=== PATIENT | female | born 1960 | race African-American/Black ===

== ENCOUNTER 2020-03-28 05:14 | Day surgery (SDC) | payer MEDICARE, MEDICAID ==
--- NOTE | 2020-03-25 16:35 | Opthalmology H&P ---
Ophthalmology H&P H&P Chief Complaint: decreased vision in right eye HPI Vision Affects Ability to: read, manage personal affairs Past Ocular History: retinal problems - Vit. Hemorrhage OU HPI Narrative Blurry vision Exam Visual Acuity: OD 20/125 OS 20/60 Tension: OD 18 OS 20 Eye Exam: normal OU: external exam, palpebral fissure-width, marginal reflex distance, levator function, corneas, anterior chambers; findings: lens - PSC/NS Cataract OD, fundus exam - Vitreous hemorrhage OU Assessment/Plan Treatment Plan: cataract extraction w/ lens implant Goals of Treatment: improvement of vision, enhance quality of life Attestation Attestation The risks and benefits of the surgery as well as alternative procedures were explained to the patient in detail. Ace Peters MD Mar 25, 2020 16:35
--- NOTE | 2020-03-25 16:36 | Pre-Procedure Note/Attestation ---
Pre-Procedure Note/Attestation Complete Prior to Procedure Planned Procedure: right Procedure Narrative: Cataract extraction with IOL implant right eye Indications for Procedure Pre-Operative Diagnosis: Posterior subcapsular/ Nuclear sclerotic cataract right eye Attestation I attest that I discussed the nature of the procedure; its benefits; risks and complications; and alternatives (and the risks and benefits of such alternatives), prior to the procedure, with the patient (or the patient's legal employer relations representative). I attest that, if there was a reasonable possibility of needing a blood transfusion, the patient (or the patient's legal employer relations representative) was given the [facility] standardized written summary, pursuant to the Robbi Cristina Blood Safety Act ([place] Health and Safety Code # 1645, as amended). I attest that I re-evaluated the patient just prior to the surgery and that there has been no change in the patient's H&P, except as documented below: Ace Peters MD Mar 25, 2020 16:36
[~2020-03-28] VITALS: Ht 182.9 cm; Wt 127.0 kg
[2020-03-28] VITALS (9 sets, daily range): BP systolic 117–157; BP diastolic 61–91
[~2020-03-28 05:14] MED LIST: COGENTIN1 MG ORAL; GEODON20 MG ORAL; GLIPIZIDE5 MG ORAL; HUMULIN R100 UNIT/1 SUBQ; IBUPROFEN200 MG ORAL; LATUDA80 MG PO; METFORMIN HCL1000 M1 ORAL; PAROXETINE HC12.5 MG ORAL; SIMVASTATIN20 MG ORAL; TRAZODONE HCL50 MG ORAL
[2020-03-28] MEDS ORDERED: Tobramycin Op Soln 0.3% 5ml RIGHT EYE ONE (06:00)
[2020-03-28] MEDS ORDERED: Akten 3.5% 1ml Btl RIGHT EYE ONE (07:00)
[2020-03-28] MEDS ORDERED: Tobradex Opth Oint 3.5gm RIGHT EYE ONE (07:00)
[2020-03-28] MEDS ORDERED: Proparacaine 0.5% Opth Soln 15ml RIGHT EYE ONE (07:00)
[2020-03-28] MEDS ORDERED: Cyclopentolate 2% Opth Sol RIGHT EYE ONE (07:00)
[2020-03-28] MEDS ORDERED: prednisoLONE acetate 1% Opth Susp 1ml ONE (07:00)
[2020-03-28] MEDS ORDERED: Tetracaine 0.5% Opth 4ml Soln RIGHT EYE ONE (07:00)
[2020-03-28] MEDS ORDERED: Maxitrol Opth Oint 3.5gm ONE (07:00)
[2020-03-28] MEDS ORDERED: Pilocarpine 1% Opth 15ml Soln ONE (07:00)
[2020-03-28] MEDS ORDERED: Diclofenac Sod 0.1% Op Soln RIGHT EYE ONE (07:00)
[2020-03-28] MEDS: Tropicamide 1% Opth 15ml Soln RIGHT EYE SCH ×3 (07:55→08:23)
[2020-03-28] MEDS: Phenylephrine 10% Opth Soln 5ml RIGHT EYE SCH ×3 (07:55→08:23)
[2020-03-28] MEDS ORDERED: LANTUS SOL100 UNIT/1 SUBQ (08:09)
[2020-03-28] MEDS ORDERED: NOVOLOG100 UNITS1 SUBQ (08:10)
[2020-03-28] MEDS ORDERED: LISINOPRIL40 MG ORAL (08:10)
[2020-03-28] MEDS ORDERED: AMLODIPINE BESYL5 MG ORAL (08:11)
[2020-03-28] MEDS ORDERED: PROZAC40 MG ORAL (08:11)
[2020-03-28] MEDS ORDERED: acetaZOLAMIDE 500mg Inj ONE (09:53)
[2020-03-28] MEDS ORDERED: fentaNYL 100 mcg/2 mL IV ONE ×2 (09:55→10:14)
[2020-03-28] MEDS ORDERED: Midazolam 2mg/2ml Inj ONE ×3 (09:55→10:26)
[2020-03-28] MEDS ORDERED: Sterile Water Irrig 1000ml IRRIG ONE (10:00)
[2020-03-28] MEDS ORDERED: LR 1000ml ONE (10:00)
[2020-03-28] MEDS ORDERED: NS Irrig 1000ml ONE (10:00)
--- NOTE | 2020-03-28 10:34 | Anethesia Preoperative Eval ---
Anesthesia Pre-op PMH/ROS General Date of Evaluation: Mar 28, 2020 Time of Evaluation: 09:50 Anesthesiologist: bri ASA Score: ASA 3 Mallampati Score Class I : Soft palate, uvula, fauces, pillars visible Class II: Soft palate, uvula, fauces visible Class III: Soft palate, base of uvula visible Class IV: Only hard plate visible Mallampati Classification: Class III Surgeon: amarjit Diagnosis: cataract Surgical Procedure: Cataract extraction Anesthesia History: none Family History: no anesthesia problems Allergies: Coded Allergies: No Known Allergies (Unverified , 03/25/20) Medications: see eMAR Patient NPO?: Yes NPO Date: Mar 28, 2020 NPO Time: 00:01 Past Medical History Cardiovascular: Reports: HTN, CAD; Denies: OR, valve dz, arrhythmia, other Pulmonary: Denies: asthma, COPD, DANIEL, other Gastrointestinal/Genitourinary: Reports: GERD; Denies: CRI, ESRD, other Neurologic/Psychiatric: Denies: dementia, CVA, depression/anxiety, TIA, other Endocrine: Reports: DM; Denies: hypothyroidism, steroids, other HEENT: Reports: cataract (L); Denies: cataract (R), glaucoma, MI'KMAQ (L), MI'KMAQ (R), other Hematology/Immune: Denies: anemia, DVT, bleeding disorder, other Musculoskeletal/Integumentary: Denies: OA, RA, DJD, DDD, edema, other Anesthesia Pre-op Phys. Exam Physician Exam Last Vital Signs Date Time Temp Pulse Resp B/P (MAP) Pulse Ox O2 Delivery O2 Flow Rate FiO2 03/28/20 08:23 Room Air 03/28/20 08:20 97.8 80 18 157/91 100 Constitutional: NAD Neurologic: CN 2-12 intact Cardiovascular: RRR Respiratory: CTA Gastrointestinal: S/NT/ND Airway Exam Mallampati Classification 3 Mallampati Score: Class III MO: limited ROM: full Dentures: no upper, no lower Anesthesia Pre-op A/P Labs Chemistry Test 03/28/20 08:34 POC Whole Blood Glucose 172 MG/DL (74-106) H Studies Pre-op Studies: EKG - sr Risk Assessment & Plan Assessment: covid neg Plan: mac Status Change Before Surgery: No Pre-Antibiotics Drug: none Sarai Stewart CRNA Mar 28, 2020 10:33
--- NOTE | 2020-03-28 12:12 | Immediate Post-Op Evaluation ---
Immediate Post-Op Evalulation Immediate Post-Op Evalulation Procedure: cataract extraction right eye Date of Evaluation: Mar 28, 2020 Time of Evaluation: 10:45 IV Fluids: 500 Blood Pressure Systolic: 140 Blood Pressure Diastolic: 60 Pulse Rate: 96 Respiratory Rate: 14 O2 Sat by Pulse Oximetry: 100 Temperature (Fahrenheit): 97.1 Nausea: No Vomiting: No Complications none Patient Status: awake, reacts, patent Hydration Status: adequate Drug: none LenarillSarai baumann CRNA Mar 28, 2020 12:12
--- NOTE | 2020-03-28 12:13 | 48 Hour Post Anesthesia Eval ---
Post Anesthesia Evaluation Procedure: cataract extraction right eye Date of Evaluation: Mar 28, 2020 Time of Evaluation: 12:13 Blood Pressure Systolic: 117 0: 74 Pulse Rate: 70 - 70 Respiratory Rate: 14 O2 Sat by Pulse Oximetry: 98 Airway: patent Nausea: No Vomiting: No Hydration Status: adequate Cardiopulmonary Status: stable Mental Status/LOC: patient returned to baseline Post-Anesthesia Complications: none Follow-up care needed: N/A Sarai Stewart CRNA Mar 28, 2020 12:13
[2020-03-28] MEDS ORDERED: Sodium Hyaluronate 10 mg/ml 0.85ml ONE (12:34)
[2020-03-28] MEDS ORDERED: BSS 500ml btl ONE (12:34)
[2020-03-28] MEDS ORDERED: Povidone-Iodine 5% opth solution ONE (12:34)
[2020-03-28] MEDS ORDERED: BSS 15ml BTL ONE (12:34)
[2020-03-28] MEDS ORDERED: EPINEPHrine 1mg/1ml Amp ONE (12:52)
--- NOTE | 2020-03-28 15:23 | Brief Operative Note ---
Immediate Post Operative Note Operative Note Chief Complaint: Blurry vision Pre-op Diagnosis: Posterior subcapsular/ Nuclear sclerotic cataract right eye Procedure: Cataract extraction with IOL implant right eye Post-op Diagnosis: Pseudo OD Findings: consistent w/pre-op dx studies Surgeon: Ace Peters MD Anesthesiologist: Sarai Stewart CRNA Anesthesia: MAC Specimen: none Complications: none Condition: stable Fluids: LR Estimated Blood Loss: none Drains: none Implant(s) used?: Yes - IOL-OD Ace Peters MD Mar 28, 2020 15:23
--- NOTE | 2020-03-29 09:21 | Operative Note - PDOC ---
Operative Note Operative Note Date of Operation/Procedure: Mar 28, 2020 Chief Complaint: Blurry vision Pre-op Diagnosis: Posterior subcapsular/ Nuclear sclerotic cataract right eye Procedure: Cataract extraction with IOL implant right eye Post-op Diagnosis: Pseudo OD Operative Findings: consistent w/pre-op dx studies Surgeon: Ace Peters MD Anesthesiologist: Sarai Stewart CRNA Anesthesia: MAC Specimen: none Complications: none Condition: stable Fluids: LR Estimated Blood Loss: none Drains: none Implant(s) used?: Yes - IOL-OD Indications for Procedure Posterior subcapsular/ Nuclear sclerotic cataract right eye Description of Procedure This patient has been complaining visually significant cataract in the right eye with the best corrected visual acuity of 20/125 under moderate glare conditions worse. The patient complains of difficulties with glare in performing activities of daily living and wants to manage personal affairs with comfort and accuracy and see well enough to move with safety at home and outdoors. The risks, benefits and alternatives of the procedure were discussed with the patient in the office prior to scheduling surgery. All questions from the patient were answered after the surgical procedure was explained in detail. The risks of the procedure as explained to the patient include, but are not limited to, pain, infection, bleeding, loss of vision, retinal detachment, need for further surgery, loss of lens nucleus, double vision, etc. Alternative procedures were discussed which include, to do nothing or seek a second opinion. Informed consent for this procedure was obtained from the patient. The patient was referred to a primary care physician for a cardiopulmonary clearance prior to surgery, after proper evaluation was done patient was properly scheduled for outpatient surgery. The patient was brought to the operating room where the anesthesiologist established I.V. lines and cardiac monitoring leads. Mild intravenous sedation was administered. The patient was then prepared with a 5% solution of povidone-iodine to the conjunctival fornix and lashes, and a 5% solution of povidone-iodine to the lids and periorbital skin. The patient was then draped in the usual sterile fashion. A lid speculum was then placed in the operative eye. A keratome blade was then used to create a biplanar incision into the anterior chamber. Viscoelastics was then instilled into the anterior chamber. A capsulorrhexis was then fashioned with an utrata forceps. BSS and a cannula were then used to hydrodissect and hydro delineate the lens. Paracentesis incision was made at 3 o'clock with sharp blade. The phacoemulsification unit, after being properly adjusted and tested, was then used to emulsify the nucleus. Residual cortical material was aspirated with the irrigation and aspiration unit. Healon was then instilled into the anterior chamber. The corneal wound was then enlarged to the size of the optic with the gino keratome blade. The intraocular lens was then inspected for right power and size and thought to be satisfactory. Then the lens was gently placed in the capsular bag. Positioning within the capsular bag was confirmed by direct visualization. Optic centration was accomplished with a Sinskey hook. Viscoelastics was removed from the anterior chamber using the irrigation and aspiration unit. The corneal wound was then tested for leaks and none were found. The lid speculum were then removed. Sponge and needle counts were correct. An eye patch and shield were placed over the operative eye. The patient was taken to the recovery room in stable condition. There were no complications. The patient tolerated the procedure well. The patient was then transferred to the ambulatory surgery unit in stable and satisfactory condition, was given detailed written instructions and asked to follow up in the office the next day. Ace Peters MD Mar 29, 2020 09:20
== END 2020-03-28 11:55 | disposition home or self-care (01) ==
LOC: SUR 05:14
DX: H25.11 Age-related nuclear cataract, right eye (principal); H25.041 Posterior subcapsular polar age-related cataract, right eye; I11.9 Hypertensive heart disease without heart failure; I25.10 Atherosclerotic heart disease of native coronary artery without angina pectoris; K21.9 Gastro-esophageal reflux disease without esophagitis; E11.9 Type 2 diabetes mellitus without complications
CPT/HCPCS: 66984; 82962; 94003; J0171; J1100; J1120; J2250; J3010; J3370; J7120; U0002; V2632; 94150

== ENCOUNTER 2020-05-30 08:41 | Emergency (ER) | payer MEDICARE, MEDICAID ==
[~2020-05-30] VITALS: Ht 182.9 cm; Wt 127.0 kg
[~2020-05-30 08:41] MED LIST changes: -Akten 3.5% 1ml Btl LEFT EYE ONE; -Insulin Human Regular 100units/ml 3ml IV SCH; -Proparacaine 0.5% Opth Soln 15ml LEFT EYE ONE; -Tetracaine 0.5% Opth 4ml Soln LEFT EYE ONE
[2020-05-30] MEDS ORDERED: Insulin Human Regular 100units/ml 3ml IV ONE ×2 (08:45→10:00)
--- NOTE | 2020-05-30 08:50 | Emergency Room Report ---
History of Present Illness General Chief Complaint: Hyperglycemia Source: Patient Present Illness HPI Disclaimer: Please note that this report is being documented using DRAGON technology. This can lead to erroneous entry secondary to incorrect interpretation by the dictating instrument. HPI: 59-year-old female history of diabetes, hypertension presents for hypoglycemia. Scheduled for cataract surgery today however blood sugar read greater than 500. She was given a shot of insulin and sent to the emergency department for evaluation. Patient states 3 days ago her insulin autoinjector broke and has been unable to give herself insulin at home. She reports inc reased urinary frequency, lightheadedness but denies vomiting, abdominal pain. Reports intermittent nausea. Denies fever or chills. Denies cough or congestion. Denies chest pain or palpitations. PMH: Obesity, diabetes, cataracts, hypertension, palpitations PSH: Toe amputation Allergies: None Social Hx: None Allergies: Coded Allergies: No Known Allergies (Unverified , 03/25/20) COVID-19 Screening Contact w/high risk pt: No Experienced COVID-19 symptoms?: No Nursing Documentation-PMH Hx Cardiac Problems: Yes Hx Hypertension: Yes Hx Diabetes: Yes - type 2 Hx Cancer: No Hx Gastrointestinal Problems: No Hx Neurological Problems: No Review of Systems All Other Systems: negative except mentioned in HPI Physical Exam General: Awake and alert, no acute distress HEENT: NC/AT. EOMI. Cardiovascular: RRR. S1 and S2 normal. No murmur appreciated Resp: Normal work of breathing. No cough, wheezing or crackles appreciated Abdomen: Abdomen is soft, nondistended. Nontender Skin: Intact. No abrasions, laceration or rash over the exposed skin MSK: Normal tone and bulk. Moving all extremities. No obvious deformity. Neuro: Awake and alert. Mentating appropriately. Medical Decision Making Diagnostic Impression: Primary Impression: Hyperglycemia ER Course 59-year-old female presents for hyperglycemia prior to surgery. Differential includes intolerant to hyperglycemia, DKA, HHS, electrolyte abnormalities among others. [id number] glucose reading in ED is 450. Given insulin IV fluids. CBC unremarkable. Chemistry shows elevated glucose level at 542 without anion gap. Negative ketones. No evidence of DKA. Slightly elevated BUN/creatinine. Patient treated with IV fluids and insulin. Glucose improving. Potassium slightly elevated 5.2 without EKG changes. Suspect this is secondary to hyperglycemia. She was treated with insulin. Will follow up with PMD and prepared foods supervisor. Prescriptions for her insulin autoinjector is refilled. Instructed to return with new or worsening symptoms. Stable for outpatient follow-up. She understands and agrees with this treatment plan. Laboratory Tests Test 05/30/20 09:00 05/30/20 09:55 White Blood Count 10.4 K/UL (4.8-10.8) Red Blood Count 4.84 M/UL (4.20-5.40) Hemoglobin 14.1 G/DL (12.0-16.0) Hematocrit 42.4 % (37.0-47.0) Mean Corpuscular Volume 88 FL (80-99) Mean Corpuscular Hemoglobin 29.2 PG (27.0-31.0) Mean Corpuscular Hemoglobin Concent 33.3 G/DL (32.0-36.0) Red Cell Distribution Width 15.0 % (11.6-14.8) H Platelet Count 349 K/UL (150-450) Mean Platelet Volume 7.6 FL (6.5-10.1) Neutrophils (%) (Auto) 71.6 % (45.0-75.0) Lymphocytes (%) (Auto) 22.1 % (20.0-45.0) Monocytes (%) (Auto) 4.4 % (1.0-10.0) Eosinophils (%) (Auto) 0.8 % (0.0-3.0) Basophils (%) (Auto) 1.0 % (0.0-2.0) Urine Color Pale yellow Urine Appearance Clear Urine pH 5 (4.5-8.0) Urine Specific [place] 1.010 (1.005-1.035) Urine Protein 2+ (NEGATIVE) H Urine Glucose (UA) 4+ (NEGATIVE) H Urine Ketones 1+ (NEGATIVE) H Urine Blood 1+ (NEGATIVE) H Urine Nitrite Negative (NEGATIVE) Urine Bilirubin Negative (NEGATIVE) Urine Urobilinogen Normal MG/DL (0.0-1.0) Urine Leukocyte Esterase Negative (NEGATIVE) Urine RBC 0-2 /HPF (0 - 2) Urine WBC 0-2 /HPF (0 - 2) Urine Squamous Epithelial Cells Few /LPF (NONE/OCC) Urine Bacteria Few /HPF (NONE) Sodium Level 134 MMOL/L (136-145) L Potassium Level 5.2 MMOL/L (3.5-5.1) H Chloride Level 99 MMOL/L (98-107) Carbon Dioxide Level 24 MMOL/L (21-32) Anion Gap 11 mmol/L (5-15) Blood Urea Nitrogen 33 mg/dL (7-18) H Creatinine 1.6 MG/DL (0.55-1.30) H Estimated Glomerular Filtration Rate 40.2 mL/min (>60) Glucose Level 542 MG/DL (74-106) *H Calcium Level 9.4 MG/DL (8.5-10.1) Magnesium Level 2.3 MG/DL (1.8-2.4) Total Bilirubin 0.5 MG/DL (0.2-1.0) Aspartate Amino Transferase (AST) 29 U/L (15-37) Alanine Aminotransferase (ALT) 45 U/L (12-78) Alkaline Phosphatase 187 U/L (46-116) H Total Protein 8.2 G/DL (6.4-8.2) Albumin 3.9 G/DL (3.4-5.0) Globulin 4.3 g/dL Albumin/Globulin Ratio 0.9 (1.0-2.7) L Acetone Level Negative (NEGATIVE) POC Whole Blood Glucose 332 MG/DL (74-106) H EKG Diagnostic Results Troponin ordered: Yes When was troponin ordered?: May 30, 2020 Rate: normal Rhythm: NSR ST Segments: no acute changes Other Impression Sinus rhythm, left axis deviation, slightly prolonged QTC QTC 479 ms, no obvious ST segment changes Rhythm Strip Diag. Results Rhythm Strip Time: 09:14 EP Interpretation: yes Rate: 80s Rhythm: NSR, no PVC's, no ectopy Disposition: HOME, SELF-CARE Condition: Improved Scripts Insulin Aspart (Novolog Flexpen) 100 Unit/1 Ml Insuln.pen 40 UNITS SUBQ AC+HS for Diabetes Mellitus, #1 EA Prov: Lito Flores MD 05/30/20 Insulin Glargine (LANTUS) 100 Unit/1 Ml Insuln.pen 68 UNIT SUBQ BEDTIME for Diabetes Mellitus, #1 EA 0 Refills Prov: Lito Flores MD 05/30/20 Lito Flores MD May 30, 2020 08:47
[2020-05-30 08:53] VITALS: BP 155/78
--- NOTE | 2020-05-30 08:53 | NUR ---
ED Nurse Note: Pt brought in from OR c/o hyperglycemia,BS at 500s noted during pre op. Pt was supposed to undergo a cataract surgery. Per pt, she has not been taking her insulin x3 days. Pt also c/o dizziness. BS at triage is 496. Pt placed on child monitor. ERMD at bedside.
[2020-05-30] MEDS ORDERED: Metoclopramide 10mg/2ml Inj IVP ONE (09:00)
--- NOTE | 2020-05-30 09:00 | NUR ---
ED Nurse Note: IV line established. Blood and urine sent to lab.
[2020-05-30 09:24] LABS: APPEARANCE,URINE CLEAR; BILIRUBIN, URINE NEGATIVE (NEGATIVE); COLOR,URINE PALE YELLOW; EOSINOPHILS % (AUTO) 0.8 % (0.0-3.0); GLUCOSE, URINE (UA) 4+ (NEGATIVE); HEMATOCRIT 42.4 % (37.0-47.0); HEMOGLOBIN 14.1 G/DL (12.0-16.0); KETONES,URINE 1+ (NEGATIVE); LEUKOCYTE ESTERASE ,URINE NEGATIVE (NEGATIVE); LYMPHOCYTES % (AUTO) 22.1 % (20.0-45.0); MEAN CORPUSCULAR VOLUME 88 FL (80-99); MONOCYTES % (AUTO) 4.4 % (1.0-10.0); NEUTROPHILS % (AUTO) 71.6 % (45.0-75.0); NITRITE,URINE NEGATIVE (NEGATIVE); PH,URINE 5 (4.5-8.0); PLATELET COUNT 349 K/UL (150-450); PROTEIN,URINE 2+ (NEGATIVE); RED BLOOD COUNT 4.84 M/UL (4.20-5.40); UROBILINOGEN,URINE NORMAL MG/DL (0.0-1.0); WHITE BLOOD COUNT 10.4 K/UL (4.8-10.8)
[2020-05-30] MEDS ORDERED: LANTUS SOL100 UNIT/1 SUBQ (09:41)
[2020-05-30] MEDS ORDERED: NOVOLOG100 UNITS1 SUBQ (09:41)
[2020-05-30 09:47] LABS: ALANINE AMINOTRANSFERASE 45 U/L (12-78); ALBUMIN 3.9 G/DL (3.4-5.0); ALBUMIN/GLOBULIN RATIO 0.9 (1.0-2.7); ALKALINE PHOSPHATASE 187 U/L (46-116); ANION GAP 11 mmol/L (5-15); ASPARTATE AMINO TRANSFERASE 29 U/L (15-37); BILIRUBIN,TOTAL 0.5 MG/DL (0.2-1.0); BLOOD UREA NITROGEN 33 mg/dL (7-18); CALCIUM 9.4 MG/DL (8.5-10.1); CARBON DIOXIDE 24 MMOL/L (21-32); CHLORIDE 99 MMOL/L (98-107); CREATININE 1.6 MG/DL (0.55-1.30); POTASSIUM 5.2 MMOL/L (3.5-5.1); SODIUM 134 MMOL/L (136-145)
[2020-05-30 10:52] VITALS: BP 135/75
--- NOTE | 2020-05-30 10:52 | NUR ---
ED Nurse Note: Pt cleared by ERMD for discharge. DC instructions was given and explained to pt and verbalized understanding of teachings. prescription sent electronically to the pharmacy of choice. All medical deviecs such as ID band and IV line removed. Pt is AAO x4, ambulatory and left with all personal belongings.
== END 2020-05-30 10:52 | disposition home or self-care (01) ==
LOC: EMR 09:00
DX: E11.65 Type 2 diabetes mellitus with hyperglycemia (principal); I10 Essential (primary) hypertension; E66.9 Obesity, unspecified; H26.9 Unspecified cataract; Z89.429 Acquired absence of other toe(s), unspecified side
CPT/HCPCS: 36415; 80053; 81003; 82009; 82962; 83735; 85025; 93005; 96361; 96374; 96375; 96376; 99284; J1815; J2765; J7030; J7040

== ENCOUNTER → 2020-05-30 | Day surgery (SDC) | payer MEDICARE, MEDICAID ==
--- NOTE | 2020-05-25 14:08 | Opthalmology H&P ---
Ophthalmology H&P H&P Chief Complaint: decreased vision in left eye HPI Vision Affects Ability to: read, focus/use eyes together, manage personal affairs Past Ocular History: retinal problems - Vitreous hemorrhage OU HPI Narrative Blurry vision Exam Visual Acuity: OD 20/30 OS 20/60 Tension: OD 15 OS 15 Eye Exam: normal OU: external exam, palpebral fissure-width, marginal reflex distance, levator function, corneas, anterior chambers; findings: lens - PCIOL OD> NS Cataract OS, fundus exam - Vitreous hemorrhage OU Assessment/Plan Treatment Plan: cataract extraction w/ lens implant Goals of Treatment: improvement of vision, enhance quality of life Attestation Attestation The risks and benefits of the surgery as well as alternative procedures were explained to the patient in detail. Ace Peters MD May 25, 2020 14:08
--- NOTE | 2020-05-25 14:10 | Pre-Procedure Note/Attestation ---
Pre-Procedure Note/Attestation Complete Prior to Procedure Planned Procedure: left Procedure Narrative: Cataract extraction with intraocular lens implant left eye Indications for Procedure Pre-Operative Diagnosis: Nuclear sclerotic cataract left eye Attestation I attest that I discussed the nature of the procedure; its benefits; risks and complications; and alternatives (and the risks and benefits of such alternatives), prior to the procedure, with the patient (or the patient's legal desk representative). I attest that, if there was a reasonable possibility of needing a blood transfusion, the patient (or the patient's legal desk representative) was given the [facility] standardized written summary, pursuant to the Robbi Cristina Blood Safety Act ([place] Health and Safety Code # 1645, as amended). I attest that I re-evaluated the patient just prior to the surgery and that there has been no change in the patient's H&P, except as documented below: Ace Peters MD May 25, 2020 14:10
[~2020-05-30] VITALS: Ht 182.9 cm; Wt 127.0 kg
[~2020-05-30] MED LIST changes: +AMLODIPINE BESYL5 MG ORAL; +Akten 3.5% 1ml Btl LEFT EYE ONE; +Insulin Human Regular 100units/ml 3ml IV SCH; +LANTUS SOL100 UNIT/1 SUBQ; +LISINOPRIL40 MG ORAL; +LYRICA75 M1 ORAL; +NOVOLOG100 UNITS1 SUBQ; +PROZAC40 MG ORAL; +Proparacaine 0.5% Opth Soln 15ml LEFT EYE ONE; +Tetracaine 0.5% Opth 4ml Soln LEFT EYE ONE
[2020-05-30] MEDS: Tropicamide 1% Opth 15ml Soln LEFT EYE SCH ×3 (07:10→07:15)
[2020-05-30] MEDS: Tobramycin Op Soln 0.3% 5ml LEFT EYE SCH ×3 (07:10→07:15)
[2020-05-30] MEDS: Diclofenac Sod 0.1% Op Soln LEFT EYE SCH ×3 (07:10→07:15)
[2020-05-30] MEDS: Phenylephrine 10% Opth Soln 5ml LEFT EYE SCH ×3 (07:10→07:15)
[2020-05-30 07:15] VITALS: BP 135/78
--- NOTE | 2020-05-30 08:18 | NUR ---
Patient FBS is 535 at 07:35,rechecked at 07:35 561,patient is asymptomatic,Dr. Gutierres was notified and ordered to transfer patient to ER. Dr. Pham came and evaluated patient and ordered regular insulin 10 units,given as ordered
--- NOTE | 2020-05-30 11:51 | Anethesia Preoperative Eval ---
Anesthesia Pre-op PMH/ROS General Date of Evaluation: May 30, 2020 Time of Evaluation: 07:20 Anesthesiologist: Malena ASA Score: ASA 3 Mallampati Score Class I : Soft palate, uvula, fauces, pillars visible Class II: Soft palate, uvula, fauces visible Class III: Soft palate, base of uvula visible Class IV: Only hard plate visible Mallampati Classification: Class III Surgeon: Lorraine Diagnosis: L eye cataract Surgical Procedure: Cataract extraction Anesthesia History: none Family History: no anesthesia problems Allergies: Coded Allergies: No Known Allergies (Unverified , 03/25/20) Medications: see eMAR Patient NPO?: Yes Past Medical History Cardiovascular: Reports: HTN; Denies: CAD, [place], valve dz, arrhythmia, other Pulmonary: Reports: DANIEL; Denies: asthma, COPD, other Gastrointestinal/Genitourinary: Reports: GERD, CRI - elevated Cr.; Denies: ESRD, other Neurologic/Psychiatric: Reports: depression/anxiety Endocrine: Reports: DM - poorly controled; Denies: hypothyroidism, steroids, other HEENT: Reports: cataract (L), cataract (R); Denies: glaucoma, [place] (L), [place] (R), other Hematology/Immune: Reports: anemia - mild; Denies: DVT, bleeding disorder, other Musculoskeletal/Integumentary: Reports: OA Other: obesity PMH Narrative: as above PSxH Narrative: see H&P Anesthesia Pre-op Phys. Exam Physician Exam Last Vital Signs Date Time Temp Pulse Resp B/P (MAP) Pulse Ox O2 Delivery O2 Flow Rate FiO2 05/30/20 07:57 Room Air 05/30/20 07:15 97.0 75 18 135/78 100 Constitutional: NAD Neurologic: CN 2-12 intact Cardiovascular: RRR, no M/R/G Respiratory: CTA Gastrointestinal: other - obesity Airway Exam Mallampati Score: Class III MO: limited Neck: short Teeth: missing Dentures: upper, lower Anesthesia Pre-op A/P Labs Chemistry Test 05/30/20 07:41 05/30/20 07:45 05/30/20 08:41 POC Whole Blood Glucose 529 MG/DL (74-106) *H Pending 496 MG/DL (74-106) H Studies Pre-op Studies: EKG - SR Risk Assessment & Plan Assessment: ASA 3 Patient examined in preadmission area RN call for BS>500, chart reviewed, according to patient information she had a long history of DM on high dose of insulin 68un. She missed her insulin injection for last 3 days because of some technical problems with injector. We will give her a dose of s/q reg. insulin, cancel cataract Sx and refer patient to ER department for further evaluation and treatment. Status Change Before Surgery: Yes - see evaluation note Roger Guy MD May 30, 2020 11:51
== END | disposition home or self-care (01) ==
LOC: SUR 06:13
DX: Z53.9 Procedure and treatment not carried out, unspecified reason (principal)
CPT/HCPCS: 82962; U0002